=== PATIENT | male | born 1960 | race Caucasian/White ===

== ENCOUNTER 2022-02-06 11:02 | Emergency (ER) | payer OTHER ==
[~2022-02-06] VITALS: Ht 180.3 cm; Wt 108.9 kg
[~2022-02-06 11:02] MED LIST: ALBU90OI INH; DECADRON6 MG PO; Flovent Disku100 MCG INH; Zithromax250 MG PO
== END 2022-02-06 11:54 | disposition home or self-care (01) ==
LOC: ER 11:02
DX: S60.211A Contusion of right wrist, initial encounter (principal); S80.12XA Contusion of left lower leg, initial encounter; S00.81XA Abrasion of other part of head, initial encounter; S76.119A Strain of unspecified quadriceps muscle, fascia and tendon, initial encounter; V47.5XXA Car driver injured in collision with fixed or stationary object in traffic accident, initial encounter; J45.909 Unspecified asthma, uncomplicated; Z87.891 Personal history of nicotine dependence
CPT/HCPCS: 73110; 73562-LT; 90714